=== PATIENT | male | born 1955 | race Caucasian/White ===

== ENCOUNTER → 2018-01-17 12:23 | Outpatient (CLI) | payer BC ==
[2015-01-14 11:39] VITALS: BMI 21.6
[~2018-01-17 12:23] MED LIST: BAYER CHEWABLE81 MG PO; CELEXA20 MG PO; ZOCOR20 MG PO
== END | disposition home or self-care (01) ==
LOC: D.MRI 12:23
DX: M54.12 Radiculopathy, cervical region (principal)

== ENCOUNTER → 2019-10-02 13:21 | Outpatient (CLI) | payer BC ==
[2015-01-14 11:39] VITALS: BMI 21.6
--- NOTE | ~2019-10-02 | EC ---
PATIENT:ANNE MARIE WINTERS DATE OF SERVICE: 10/02/19 SEX: M MEDICAL RECORD: [id number] DATE OF : [birth year] LOCATION:[facility] AGE OF PATIENT: 64 ADMISSION DATE: 10/02/19 REFERRING PHYSICIAN: INTERPRETING PHYSICIAN: KEVIN AYERS MD ECHOCARDIOGRAM REPORT ECHO CHARGES 4 ECHO COMPLETE Date: 10/02/19 CLINICAL DIAGNOSIS: HTN HX OF CAD/CARDIOMYOPATHY/MR/TR ECHOCARDIOGRAPHIC MEASUREMENTS (adult normal given) AC root (d.<3.7cm) 3.8 cm LV Septum d (<1.2 cm> 0.90 cm Valve Excursion 1.9 cm LV Septum (systole) 1.1 cm Left Atria (s.<4.0cm> 3.6 cm LVPW d(<1.2cm) 1.2 cm RV (d.<2.3cm) 3.3 cm LVPW (sytole) 1.4 cm LV diastole(<5.6CM) 5.6 cm MV E-F(>70mm/sec) cm LV systole 4.8 cm LVOT Diameter 2.3 cm MV exc.(>10mm) 2.3 cm Est.ejection fraction (50-75%) % DOPPLER: LVIT cm/sec A 56.0 cm/sec E 109 cm/sec LA cm/sec RVSP 15 mmHg LVOT 92 cm/sec AOP1/2T m/s Asc. Ao 110 cm/sec RVOT 77 cm/sec RA cm/sec PA 111 cm/sec AV Gradient Peak 4.84 mmHg AV Mean 2.84 mmHg AV Area 3.4 cm MV Gradient Peak 4.60 mmHg MV Mean 1.60 mmHg MV Area cm COMMENTS: Marketing Content Manager: 2 SHAWN [employer]LE[employer] Network Control Technician: 3 Dr. Condon TAPE# PACS Pericardial Effusion N DATE OF SERVICE: Adequate 2D, color flow, spectral Doppler, and M-Mode. No LVH. LV internal dimensions are normal. Wall motion shows global hypokinesis. Reduced EF, estimated EF 40% to 45%. Aortic valve sclerosis without stenosis by Doppler interrogation. The left atrium is normal at 3.6 cm. Mitral valve shows no prolapse. Mild MR. Right-sided chambers grossly normal. Trace TR. ECHOCARDIOGRAM REPORT [id number] ANNE MARIE WINTERS TRANSINT:[id number] Voice Confirmation ID: [id number] DOCUMENT ID: [id number] KEVIN AYERS MD CC: [id number] DICTATION DATE: 10/04/19 1420 VP OF [employer]: 10/04/192022 DEP CLI 10/02/19 [id number] [place] [address]
== END | disposition home or self-care (01) ==
LOC: D.HCCECHO 13:21 → D.HCCARDIO 14:00
PROVIDERS: ATTEND Internal Medicine Interventional Cardiology
DX: I10 Essential (primary) hypertension (principal)